=== PATIENT | male | born 1995 | race Caucasian/White ===

== ENCOUNTER → 2017-12-05 | Outpatient (CLI) | payer OTHER ==
--- NOTE | 2017-12-05 12:51 | DIAGNOSTIC IMAGING REPORT ---
(RENAL)RETROPERITON COMP HISTORY: FREQ URINATION COMPARISON: None. FINDINGS: Right kidney: Maximum dimension 11.3 cm. No evidence for hydronephrosis. Normal corticomedullary differentiation and cortical thickness. Left kidney: Maximum dimension 11.5 cm. No evidence for hydronephrosis. Normal corticomedullary differentiation and cortical thickness. Bladder: No bladder wall thickening. The bilateral ureteral jets were identified. IMPRESSION: Normal renal ultrasound. The above report was generated using voice recognition software. It may contain grammatical, syntax or spelling errors. Electronically signed by: John Negrete M.D. 12/05/2017 12:50 PM Dictated Date/Time: 12/05/2017 12:49 PM
== END | disposition home or self-care (01) ==
LOC: C.ULTR 12:06
PROVIDERS: ATTEND Family Medicine
DX: R35.0 Frequency of micturition (principal)

== ENCOUNTER → 2018-01-07 | Outpatient (CLI) | payer OTHER | END | disposition home or self-care (01) | LOC: C.LABSPEC 17:10 | PROVIDERS: ATTEND Urology | DX: R30.0 Dysuria (principal); R35.0 Frequency of micturition ==